=== PATIENT | male | born 1995 | race African-American/Black ===

== ENCOUNTER 2018-07-19 02:05 | Emergency (ER) | payer SELFPAY ==
[~2018-07-19] VITALS: Ht 188 cm; Wt 79.0 kg
[2018-07-19] MEDS ORDERED: LIDOCAINE HCL 1% 20ML VIAL (Pyxis) INJ INFIL ONE (08:15)
[2018-07-19] MEDS ORDERED: ACETAMINOPHEN 325MG TABLET PO ONE (08:45)
[2018-07-19 09:43] VITALS: BP 127/81
== END 2018-07-19 09:49 | disposition home or self-care (01) ==
LOC: ER 02:05
DX: S61.214A Laceration without foreign body of right ring finger without damage to nail, initial encounter (principal); W25.XXXA Contact with sharp glass, initial encounter; Y93.G1 Activity, food preparation and clean up; Y92.010 Kitchen of single-family (private) house as the place of occurrence of the external cause
CPT/HCPCS: 12001; 73140; 99283; J3490